=== PATIENT | female | born 1940 ===

== ENCOUNTER 2023-10-02 14:46 | Outpatient (AMB) | payer MEDICARE, SELFPAY ==
--- NOTE | 2023-10-02 14:49 | MHC.OFFVIS ---
Vital Signs 10/02/23 14:52 Height 5 ft 1.5 in Weight 134 lb 11.239 oz BMI 25.0 BP 140/77 H Blood Pressure Location Lt brachial Position Sitting Pulse 85 Pulse Source Pulse Oximeter Pulse Oximetry (%) 97 Oxygen Delivery Method Room Air Intake Visit Reasons: OA/PMR/CM Intake Note: New patient referred by PCP for OA and PMR. Allergies lactose Adverse Reaction (Unknown, Verified 10/02/23 14:55) unknown lisinopril Adverse Reaction (Unknown, Verified 10/02/23 14:55) Myalgia Penicillins Adverse Reaction (Unknown, Verified 10/02/23 14:55) Unknown Tramadol Adverse Reaction (Unknown, Uncoded 10/02/23 14:55) Hallucination, GERD, hearing sensitivity Medication List - Last Reconciled 10/02/23 by Matt Beckham MD diphenhydramine HCl (Benadryl Allergy) 50 mg PO BEDTIME PRN hydrochlorothiazide 25 mg PO DAILY magnesium chloride mg PO zinc acetate 25 mg PO DAILY HPI Comments Details: This is an 83-year-old female presents for evaluation of PMR and osteoarthritis who presents to establish care. She states that she was diagnosed with PMR around 2009 when she was having generalized body stiffness especially of her knees. She also states that she had a biopsy which I assume is a temporal artery biopsy. She states that the biopsy was negative. She was treated with prednisone for years until about 2 years ago. She used to see Dr. Amado Velasquez in [place]. She states that prednisone was discontinued and she was switched to an intramuscular injection every 4 months. She does not recall the name of it. She also states that over the last year she developed right lung cancer which was treated with lobectomy. She denies any history of DVT/PE. She is unaware of any family history of an autoimmune rheumatic disease. Today she has no active complaints but she wanted to establish care with a new online merchandiser [facility] Medical History Sickle cell trait Small cell lung cancer, right lower lobe Surgical History H/O bilateral oophorectomy H/O: hysterectomy H/O right knee surgery History of lung surgery Review of Systems Const Denies fever(s) [facility] [place] [facility] [place] arthralgias and Denies joint swelling Skin/Breast Denies rash Physical Exam Vital Signs: Last Vital Signs Pulse 85 10/02/23 14:52 BP 140/77 H 10/02/23 14:52 Pulse Ox 97 10/02/23 14:52 Oxygen Delivery Method Room Air 10/02/23 14:52 BMI result Body Mass Index 11.3 Const General: cooperative, healthy appearing and comfortable Nutritional Appearance: average body habitus Orientation/consciousness: patient oriented x3 Limitations: no limitations HEENT Head: Yes normocephalic and Yes atraumatic Mouth: moist mucous membranes Resp Effort & Inspection: normal respiratory effort and able to speak in complete sentences Skin General skin exam: no rashes or lesions noted Neuro General: patient oriented x3 Extrem Other: Osteoarthritic changes of both hands with no active synovitis S/p right knee replacement No hip pain bilaterally with hip manipulation No knee pain with flexion-extension Left knee crepitus No ankle swelling or tenderness bilaterally No MTP tenderness bilaterally Normal nailfold capillaroscopy Assessment & Plan Assessment & Plan (1) PMR (polymyalgia rheumatica): Code(s): M35.3 - Polymyalgia rheumatica Category: Medical Plan: This is an 83-year-old female with history of PMR and osteoarthritis who presents to [facility] care. Per patient she was diagnosed with PMR around 2009 she also had a biopsy which I assume is temporal artery biopsy which was negative. She had been on prednisone until about 2 years ago then she was switched to an intramuscular injectable every 4 months. Records unavailable to me. Upon evaluation today I do not see any signs of active autoimmune rheumatic disease. I will order comprehensive serology to better understand her underlying autoimmune illness. I will request records from her previous online merchandiser Follow-up in 6 weeks Plan I spent 47 minutes reviewing patient's chart, evaluating patient, ordering diagnostic workup, counseling patient and documenting in the chart Orders: Orders SAGE Reflex Titer and Pattern Today M32.9 - Systemic lupus erythematosus, unspecified Anti DNA DS Antibody Today M32.9 - Systemic lupus erythematosus, unspecified Complement C4 Today M32.9 - Systemic lupus erythematosus, unspecified DNA Double Stranded-Crithidia Today M32.9 - Systemic lupus erythematosus, unspecified Erythrocyte Sedimentation Rate Today M32.9 - Systemic lupus erythematosus, unspecified Sjogren's Antibodies Today M32.9 - Systemic lupus erythematosus, unspecified Thyroglobulin Antibodies Today E06.3 - Autoimmune thyroiditis Complete Blood Count Auto Diff Today M32.9 - Systemic lupus erythematosus, unspecified Immunofixation Pnl, Serum Today M32.9 - Systemic lupus erythematosus, unspecified Protein Electrophoresis, Serum Today M32.9 - Systemic lupus erythematosus, unspecified T Spot TB Today Z11.7 - Encounter for testing for latent tuberculosis infection Anti Extractable Nuclear Ag Today M32.9 - Systemic lupus erythematosus, unspecified Complement C3 Today M32.9 - Systemic lupus erythematosus, unspecified C Reactive Protein Today M32.9 - Systemic lupus erythematosus, unspecified Protein Creatinine Ratio, Ur Today M32.9 - Systemic lupus erythematosus, unspecified UA w Microscopic Today M32.9 - Systemic lupus erythematosus, unspecified Thyroid Peroxidase Antibodies Today E06.3 - Autoimmune thyroiditis TSH reflex Free T4 Today E06.3 - Autoimmune thyroiditis Rheumatoid Factor Today M32.9 - Systemic lupus erythematosus, unspecified Cyclic Citrullinated Peptide Today M32.9 - Systemic lupus erythematosus, unspecified Comprehensive Met. Panel Today M32.9 - Systemic lupus erythematosus, unspecified Hepatitis A,B,C Profile Today Z11.59 - Encounter for screening for other viral diseases Coding Level of Care Code New Pt Level 4 (61724) Diagnoses PMR (polymyalgia rheumatica) M35.3
[2023-10-02 14:52] VITALS: BP 140/77; PULSE 85; O2SAT 97; BMI 25.0
== END 2023-10-02 15:39 | disposition home or self-care (01) ==
PROVIDERS: PCP Internal Medicine; Visit Provider Student in an Organized Health Care Education/Training Program
DX: M35.3 Polymyalgia rheumatica (principal)
CPT/HCPCS: 99204

== ENCOUNTER 2023-10-02 14:46 | Outpatient (REF) | payer MEDICARE, SELFPAY ==
[2023-10-02 16:27] LABS: MANUAL DIFF FLAG NO
[2023-10-02 17:12] LABS: Basophils Absolute Auto 0.1 X10*3/uL (0.0-0.2); Eosinophils Percent Auto 18.6 % (0-4); Hemoglobin 12.7 g/dl (12.0-16.0); Imm Gran Abs Auto 0.01 X10*3/uL (0.00-0.03); Imm Gran Pct Auto 0.2 % (0.0-0.4); Lymphocytes Absolute Auto 1.7 X10*3/uL (1.2-4.9); Lymphocytes Percent Auto 32.2 % (20-40); Mean Corpuscular HGB Conc 35.3 g/dl (31.0-35.0); Mean Corpuscular Hemoglobin 30.5 pg (27.0-33.0); Mean Corpuscular Volume 86.5 fL (80.0-98.0); Mean Platelet Volume 10.6 fL (9.4-12.3); Monocytes Absolute Auto 0.5 X10*3/uL (0.1-1.2); Platelet Count 248 X10*3/uL (160-400); Red Blood Count 4.16 X10*6/uL (4.20-5.50); Red Cell Distribution Width 13.2 % (11.0-16.0); White Blood Count 5.2 X10*3/uL (4.8-10.8)
[2023-10-02 18:19] LABS: Erythrocyte Sedimentation Rate 20 MM/HR (0-20)
[2023-10-02 19:07] LABS: Alanine Aminotransferase 12 U/L (0-31); Albumin Level 4.3 g/dL (3.5-5.0); Alkaline Phosphatase 155 U/L (39-117); Anion Gap 14 (12-20); Aspartate Amino Transferase 18 U/L (5-31); Bilirubin Total 0.6 mg/dL (0.0-1.0); Blood Urea Nitrogen 12 mg/dL (9-16); C Reactive Protein 0.33 mg/dL (< or = 0.50); Calcium 10.4 mg/dL (8.4-10.2); Carbon Dioxide 27 mmol/L (22-29); Chloride 107 mmol/L (96-108); Estimated Glomerular Filt Rate 56; Glucose Random 97 mg/dL (60-115); Sodium 145 mmol/L (135-145); Total Protein 7.4 g/dL (6.5-8.0)
[2023-10-02 19:09] LABS: Potassium 2.8 mmol/L (3.3-5.1)
[2023-10-02 19:41] LABS: Rheumatoid Factor < 13.0 IU/mL (<15.0)
[2023-10-03 04:42] LABS: HBS Num1 30.27 mIU/mL (0-7.99); HBc Num1 0.22 S/CO (0.00-0.79); HBsAGNum1 0.23 S/CO (0.00-0.99); Hepatitis A Antibody IgM 0.13 Index (0-0.79); Hepatitis B Core Antibody Nonreactive (Nonreactive); Hepatitis B Surface Antigen Negative (Negative); ~Hepatitis A Antibody IgM Nonreactive (Nonreactive); ~Hepatitis B Surface Antibody REACTIVE (Nonreactive); ~Hepatitis C Antibody Nonreactive (Nonreactive)
[2023-10-04 08:58] LABS: Thyroglobulin Antibodies 55 IU/mL (< or = 1); Thyroid Peroxidase Antibodies 741 IU/mL (<9)
[2023-10-04 20:49] LABS: Anti DNA DS Antibody <1 IU/mL; Antibody to SS-A Antigen <1.0 NEG AI (<1.0 NEG); Antibody to SS-B Antigen <1.0 NEG AI (<1.0 NEG); SM/Ribonucleoprotein Ab <1.0 NEG AI (<1.0 NEG); Smith Protein <1.0 NEG AI (<1.0 NEG)
[2023-10-04 22:19] LABS: Prot Elec - Albumin 4.2 g/dL (3.8-4.8); Prot Elec - Alpha1 0.4 g/dL (0.2-0.3); Prot Elec - Alpha2 0.8 g/dL (0.5-0.9); Prot Elec - Beta 1 0.4 g/dL (0.4-0.6); Prot Elec - Beta 2 0.5 g/dL (0.2-0.5); Prot Elec - Gamma 0.9 g/dL (0.8-1.7); Prot Elec - Total Protein 7.1 g/dL (6.1-8.1)
[2023-10-05 02:29] LABS: TS Negative Control Passed; TS Panel A 0; TS Panel B 0; TS Positive Control Passed; TSpotTB Negative (Negative)
[2023-10-05 09:28] LABS: Anti Nuclear Antibody Screen NEGATIVE (NEGATIVE)
[2023-10-05 17:24] LABS: Cyclic Citrullinated Peptide <16 UNITS
[2023-10-05 20:48] LABS: Complement C3 97 mg/dL
[2023-10-06 13:07] LABS: IgA 246 mg/dL (70-320); IgG 1055 mg/dL (600-1540); IgM 72 mg/dL (50-300)
[2023-10-12 07:43] LABS: DNAds, Crithidia Antibody Negative (Negative)
== END 2023-10-02 14:47 | disposition home or self-care (01) ==
LOC: HO.LAB 14:46
PROVIDERS: PCP Internal Medicine; Visit Provider Student in an Organized Health Care Education/Training Program
DX: Z11.7 Encounter for testing for latent tuberculosis infection (principal); Z11.59 Encounter for screening for other viral diseases; M32.9 Systemic lupus erythematosus, unspecified; E06.3 Autoimmune thyroiditis; M35.3 Polymyalgia rheumatica; Z72.89 Other problems related to lifestyle
CPT/HCPCS: 36415; 80053; 82784; 84165; 84443; 85025; 85652; 86038; 86140; 86160; 86200; 86225; 86235; 86255; 86334; 86376; 86431; 86481; 86704; 86706; 86709; 86800; 86803; 87340; 99202